=== PATIENT | female | born 1990 | race Hispanic/Latino ===

== ENCOUNTER 2018-07-20 13:23 | Outpatient (CLI) | payer MEDICAID ==
--- NOTE | 2018-07-20 16:45 | ULT ---
ULTRASOUND OBSTETRICAL COMPLETE: 07/20/18 HISTORY: 27-year-old female presents for anatomical survey. FINDINGS: number: Umanzor. lie: Cephalic. Maternal cervix: Closed and approximately 3.5 cm in length. Placenta: Anterior. No placental previa. Amniotic fluid volume: SIVAKUMAR=12 mL. heart rate: 132 bpm The following anatomy is visualized, with no evidence of anomalies: Head, lateral ventricles, cerebellum, nose and lips, spine, upper limbs, lower limbs, four chamber he art, umbilical cord, cord insertion, stomach, kidneys, and bladder. biometry: Head circumference (HC): 29.0 cm 32w 0d Biparietal diameter (BPD): 7.9 cm 31w 6d Abdominal circumference (AC): 25.2 cm 29w 3d Femur length (FL): 5.6 cm 29w 3d Average ultrasound age (AUA): 31w 0d Estimated date of delivery (AMI): 09/21/2018 Last menstrual period (LMP): 01/18/2018 Gestational age by LMP: 26w 1d Estimated weight (EFW): 1456 g +/- 215 g (3 lb. 3 oz. +/- -8 oz) IMPRESSION: 1. Live third trimester intrauterine gestation. 2. Estimated gestational age of 31 weeks, 0 days. 3. Cephalic lie. 4. No anatomical abnormalities. mark [] POS: KATHRINE
== END 2018-07-20 13:24 | disposition home or self-care (01) ==
LOC: ULT 13:23
PROVIDERS: ATTEND Family Medicine
DX: Z34.82 Encounter for supervision of other normal pregnancy, second trimester (principal)
CPT/HCPCS: 76805